=== PATIENT | female | born 1970 | race Caucasian/White ===

== ENCOUNTER → 2023-03-08 | Outpatient (CLI) | payer OTHER, SELFPAY ==
[2023-03-08 10:17] LABS: Hematocrit 41.1 % (37-47); Hemoglobin 12.4 g/dL (12.0-15.0); Mean Corp Hgb Conc 30.2 g/dL (32-36); Mean Corpuscular Hgb 26.6 pg (27.0-32.0); Mean Corpuscular Volume 88.2 fL (81-99); Mean Platelet Vol. 11.7 fl (6.2-12.0); Platelet Count 286 K/mm3 (150-450); RBC Distribution Width CV 13.5 % (11.6-14.6); RBC Distribution Width SD 43.4 fl (35.1-43.9); Red Blood Count 4.66 M/mm3 (4.2-5.4); White Blood Count 6.8 K/mm3 (4.4-11.0)
[2023-03-08 11:13] LABS: ALB/GLOB Ratio 1.1 RATIO (0.9-2.4); AST(SGOT) 13 U/L (15-37); Alanine Aminotransfer ALT/SGPT 24 U/L (13-56); Albumin, Serum 3.6 g/dL (3.2-5.0); Alkaline Phosphatase 92 U/L (45-117); Anion Gap 5 (5-15); BUN 21 mg/dL (7-18); BUN/Creat Ratio 22.3 RATIO (10-20); Calcium,Total 8.7 mg/dL (8.5-10.1); Chloride 113 mmol/L (98-107); Cholesterol 172 mg/dL (200); Creatinine, Serum 0.94 mg/dL (0.55-1.02); EST Glomerular Filtration Rate 66 mL/min (>60); Est Glom Filt Rate - Afr Amer 80 mL/min (>60); Ferritin 5 ng/mL (8-252); Globulin 3.2 g/dL (2.2-4.2); Glucose 112 mg/dL (74-106); High Density Lipoprotein 57 mg/dL; Iron 39 ug/dL (50-170); Potassium 4.2 mmol/L (3.5-5.1); Protein, Total 6.8 g/dL (6.4-8.2); Sodium Level 141 mmol/L (136-145); Thyroid Stim Hormone (TSH) 1.07 uIU/mL (0.358-3.74); Triglycerides 91 mg/dL; Very Low Density Lipoprotein 18 mg/dL (5-40)
[2023-03-08 11:36] LABS: Vitamin B12 1258 pg/mL (211-911); Vitamin D,25 Hydroxy 46.2 ng/mL
== END | disposition home or self-care (01) ==
LOC: MTLAB 07:28
PROVIDERS: PCP Family Medicine; Referring Provider Family Medicine; Visit Provider Family Medicine
DX: E55.9 Vitamin D deficiency, unspecified (principal); Z90.410 Acquired total absence of pancreas; R53.83 Other fatigue; Z13.220 Encounter for screening for lipoid disorders
CPT/HCPCS: 36415; 80053; 80061; 82306; 82607; 82728; 83540; 84443; 85027

== ENCOUNTER → 2023-05-10 | Outpatient (CLI) | payer OTHER, SELFPAY ==
--- NOTE | 2023-05-10 15:21 | BI_ITS ---
MAMMOGRAPHY - BILATERAL SCREENING REASON FOR EXAM: Female, 52 years old. Routine annual screening examination. PERTINENT HISTORY: Non-contributory. TECHNIQUE: Digital bilateral breast maurice (3D mammographic acquisition) in the CC and MLO projections. 2-D mediolateral oblique (MLO) and craniocaudad (CC) views of both breasts were obtained. CAD: Full Field Digital Mammography with Computer Added Detection was performed. COMPARISON: No comparison mammograms available at this time. If any prior films become available, an addendum to this report can be generated. FINDINGS: Breast Composition: There are scattered areas of fibroglandular density. There are no dominant masses or suspicious calcifications. Small benign-appearing bilateral axillary lymph nodes. No other significant abnormalities are identified. BI/SCRN MAMM (CAD)W/MAURICE BILAT IMPRESSION: Negative screening mammogram. Yearly followup mammogram recommended. (A) ASSESSMENT CATEGORY: BIRADS Category 2: Benign. A letter regarding these results will be sent to the patient by the facility within 30 days. Approximately 10% of breast cancers are not detected by mammography. A normal mammogram should not delay biopsy of a clinically suspicious abnormality. [id number] Electronically Signed: William Bonilla MD at 10:17 EDT ,
--- NOTE | 2023-05-10 15:53 | CT_ITS ---
STUDY: CT ABDOMEN AND PELVIS WITH CONTRAST REASON FOR EXAM: Female, 52 years old. tumor RADIATION DOSAGE (If Supplied By Facility): CTDIvol = ( 15.38 ) mGy, DLP = ( 1193.5 ) mGycm TECHNIQUE: Transaxial images were obtained from the dome of the diaphragm to the symphysis pubis without oral contrast. Oral and amp; IV Readi-CAT and amp; 100mL Isovue-300 was administered. Sagittal and coronal images were reconstructed. Individualized dose optimization techniques were used for this CT. COMPARISON: None. FINDINGS: Minor atelectasis within the dependent portion of the lower lobes. The visualized portions of the heart are within normal limits. Moderate-sized hiatal hernia is noted Normal liver. Postsurgical changes status post cholecystectomy and Whipple''s procedure. Normal spleen. Normal pancreas. Normal bilateral adrenal glands. Normal right kidney. Normal left kidney. Normal visualized stomach. Normal small intestine. Normal colon. The appendix is visualized and appears normal. Normal abdominal aorta. Normal inferior vena cava. Normal retroperitoneum. Poorly distended thick walled prolapsed bladder.. Uterus not visualized status post hysterectomy Normal abdominal wall. Lumbar spine demonstrates mild spondylosis. CT/Abdomen/Pelvis WITH Contrast IMPRESSION: Postsurgical changes status post cholecystectomy and Whipple''s procedure. Status post cholecystectomy No evidence for small bowel obstruction. No evidence for pelvic metastasis or lymphadenopathy. Electronically Signed: Pietro Zuñiga MD at 20:12 EDT ,
== END | disposition home or self-care (01) ==
LOC: CT 15:19
PROVIDERS: PCP Family Medicine; Referring Provider Family Medicine; Visit Provider Family Medicine
DX: Z12.31 Encounter for screening mammogram for malignant neoplasm of breast (principal); C49.A0 Gastrointestinal stromal tumor, unspecified site
CPT/HCPCS: 74177; 77063; 77067; Q9967

== ENCOUNTER → 2023-08-28 | Outpatient (CLI) | payer OTHER, SELFPAY ==
[2023-08-28 12:11] LABS: Mucous, Urine 0 SEEN /hpf (<or=2+)
[2023-08-28 12:28] LABS: Color, Urine Yellow (Yellow); Glucose, Dipstick Normal (Normal); Ketone-Dipstick Negative (Negative); Leukocyte Esterase-Dipstick 500 /ul (Negative); Nitrite-Dipstick Negative (Negative); Occult Blood-Urine 25 /ul (Negative); Protein-Dipstick 15 mg/dl (Negative); Specific Gravity, Urine 1.025 (1.002-1.030); Urine Bilirubin Dipstick Negative (Negative); Urine Clarity Sl. Cloudy (Clear); Urine Urobilinogen Normal (Normal)
[2023-08-28 12:42] LABS: Bacteria 1+ /hpf (None Seen); Red Blood Cells-Urine 0-5 SEEN /hpf (0-5); Squamous Epithelial Cells - UA 0-5 SEEN /hpf (5-10); White Blood Cells 25-50 SEEN /hpf (0-5)
== END | disposition home or self-care (01) ==
LOC: LABSPEC 10:09
PROVIDERS: PCP Family Medicine; Referring Provider Family Medicine; Visit Provider Family Medicine
DX: R31.29 Other microscopic hematuria (principal)
CPT/HCPCS: 81001

== ENCOUNTER 2025-04-07 07:29 | Day surgery (SDC) | payer OTHER, SELFPAY ==
[2025-04-07] VITALS (20 sets, daily range): BP systolic 94–150; BP diastolic 62–89; PULSE 74–95; RESP 14–18; TEMP 36–37.1; O2SAT 92–98; BMI 32.5
--- NOTE | 2025-04-07 07:48 | EKG12_ITS ---
Test Reason : PREOP Blood Pressure : */* mmHG Vent. Rate : 83 BPM Atrial Rate : 83 BPM P-R Int : 176 ms QRS Dur : 80 ms QT Int : 354 ms P-R-T Axes : 51 -26 82 degrees QTcB Int : 415 ms Normal sinus rhythm Inferior infarct , age undetermined Abnormal ECG No previous ECGs available Confirmed by GLORIA GUERRERO, BENJI ([id number]), content editor DANNA DEL ROSARIO ([id number]) on 04/08/2025 7:13:34 AM Referred By: Gustavo Bertrand Confirmed By: BENJI CASTRO MD
--- NOTE | 2025-04-07 07:48 | EKG12_ITS ---
Test Reason : PREOP Blood Pressure : */* mmHG Vent. Rate : 83 BPM Atrial Rate : 83 BPM P-R Int : 176 ms QRS Dur : 80 ms QT Int : 354 ms P-R-T Axes : 51 -26 82 degrees QTcB Int : 415 ms Normal sinus rhythm Inferior infarct , age undetermined Abnormal ECG No previous ECGs available Confirmed by GLORIA GUERRERO, BENJI ([id number]), editor in chief DANNA DEL ROSARIO ([id number]) on 04/08/2025 7:13:34 AM Referred By: Gustavo Bertrand Confirmed By: BENJI CASTRO MD
[2025-04-07] MEDS: Lactated Ringers 1,000 ML 15 ML IV (08:26)
--- NOTE | 2025-04-07 08:29 | PCM.HP.BLA ---
History and Physical Date of Admission: 04/07/25 [facility] [address] [place] [address] OFFICE VISIT Date of Service: 04/01/25 MR#: [id number] Acct: [id number] Name: HOSSEIN SCHULER Rep #: [id number] : 1970 Provider: Dr. Gustavo Bertrand DO Age/Sex: 54/F Location: [facility] [place] Status: Signed Intake Vital Signs 02/13/2408:57 03/30/2509:08 04/01/2513:49 Height 5 ft 7 in 5 ft 7 in 5 ft 7 in Intake Visit Reasons: RIGHT ARM Chief Complaint: Right arm pain Accompanied by: Friend Is patient in pain?: Yes Pain scale (1-10): 3 Allergies codeine Allergy (Intermediate, Verified 04/01/25 13:51) Chest tightness Medications ?Medication ?Instructions ?Recorded ?Confirmed ?Type ascorbic acid (vitamin C) 1,000 mg 1 g PO Q6H 02/13/24 04/01/25 History capsule ferrous gluconate 240 mg (27 mg 240 mg PO DAILY 02/13/24 04/01/25 History iron) tablet (Ferate) ibuprofen 200 mg capsule 200 mg PO Q6H PRN 02/13/24 04/01/25 History hydrocodone-acetaminophen 5-325mg 1 tab PO BID PRN 04/01/25 04/01/25 History 5mg-325mg omeprazole magnesium 20 mg 20 mg PO QDAY 04/01/25 04/01/25 History capsule,delayed release (Acid Mission Assessment Specialist (omeprazole)) Have you fallen in the past year?: No PFSH Medical History Acute pharyngitis, unspecified Surgical History H/O: hysterectomy Social History (Updated 04/01/25 @ 13:54 by Yamila Rodriguez MA) Smoking Status: Never smoker alcohol intake: current alcohol intake frequency: holidays/special occasions only HPI RIGHT ARM Details: This documentation accurately reflects the service provided and the decisions made by me, Dr. Gustavo Bertrand, DO 04/01/25 1349. Part of today?s visit was documented by Yamila Fowler MA, acting as scribe. HOSSEIN SCHULER is a 54 year old F here today for right arm. Patient is having pain in the right arm. The pain is mainly in the wrist. She denies any shoulder or elbow pain.denies numbness or tingling. This happened Sunday03/28/2025. Patient tripped at work and she tried to catch her self and landed on her right arm. She did not trip or slip on anything. She went straight to [facility] and they did Xrays. The distal radius and ulna were fractured. They did perform a closed reduction and splinting patient hasn't had prior surgery or injury on her arm. The Tylenol has been helping with the pain.Patient denies any diabetes, or blood thinners. Patient denies any smoking or drug use. She is RHD. Ortho Exam General General: Yes no acute distress and Yes well groomed Neurologic: Yes alert and Yes oriented x3 Psychologic: Yes reasonable and appropriate Right Wrist/Hand Date of injury: 03/28/25 WRIST: She is able to flex and extend her digits abduct her digits intact sensation light touch brisk capillary refill her compartments are soft and her arm. Head: Normocephalic Atraumatic Chest: symmetrical rise, non-labored breathing, no audible wheeze Abdomen: no guarding, non-rigid Supplemental Info 03/28/2025 x-ray right wrist pre and postreduction x-rays of a comminuted displaced distal radius fracture there is a nondisplaced ulnar styloid fracture Coding Level of Care Code Off vis,new,level 3 Diagnoses Other closed extra-articular fracture of distal end of right radius, initial encounter S52.551A Encounter type: initial encounter Fracture type: closed Fracture morphology: other extra-articular Other closed fracture of distal end of right ulna, initial encounter S52.691A Encounter type: initial encounter Fracture type: closed Fracture morphology: other fracture Assessment and Plan Assessment and Plan (1) Distal radius fracture, right: Status: Acute Qualifiers: Encounter type: initial encounter Fracture type: closed Fracture morphology: other extra-articular Qualified Code(s): S52.551A - Other extraarticular fracture of lower end of right radius, initial encounter for closed fracture (2) Right distal ulnar fracture: Status: Acute Qualifiers: Encounter type: initial encounter Fracture type: closed Fracture morphology: other fracture Qualified Code(s): S52.691A - Other fracture of lower end of right ulna, initial encounter for closed fracture Plan Reviewed x-rays that were taken on 03/28/2025 at [facility] and explained she did break both wrist bones the radius and ulna. Surgical nonsurgical options were reviewed and due to the fact of the comminution and displacement and angulation I would recommend surgical intervention. Risks benefits alternatives were reviewed including risk of bleeding infection nerve artery tissue damage need for further surgery continued pain hardware failure or irritation and expected postoperative restrictions and recovery. Postoperative weightbearing restrictions expected for up to 8 weeks Explained we need to wait about a week to let the swelling decrease as much as possible. She should really try to keep the hand and arm elevated and keep her fingers moving as much as possible. Recommended she take at least 6 weeks off of work unless they are able to allow her to do light duty. She should not take any Ibuprofen/Aleve prior to surgery but she can take Tylenol. Patient would like to proceed with surgery for next Sunday04/07/2025. Follow up after surgery for post-op appointment or sooner if pain, swelling, numbness or associated symptoms, or concerns develop. All questions answered. Patient in agreement of plan. Clinical Quality Measures Falls Risk Screening/Assistive Devices Have you fallen in the past year?: No 04/01/25 1548 <Electronically signed by Gustavo Bertrand DO> Date Gustavo Bertrand DO I have examined the patient and the H&P has been reviewed. There are no clinical changes since date of exam.
--- NOTE | 2025-04-07 08:29 | PCM.HP.BLA ---
History and Physical Date of Admission: 04/07/25 [facility] [address] [place] [address] OFFICE VISIT Date of Service: 04/01/25 MR#: [id number] Acct: [id number] Name: HOSSEIN SCHULER Rep #: [id number] : 1970 Provider: Dr. Gustavo Bertrand DO Age/Sex: 54/F Location: [facility] [place] Status: Signed Intake Vital Signs 02/13/2408:57 03/30/2509:08 04/01/2513:49 Height 5 ft 7 in 5 ft 7 in 5 ft 7 in Intake Visit Reasons: RIGHT ARM Chief Complaint: Right arm pain Accompanied by: Friend Is patient in pain?: Yes Pain scale (1-10): 3 Allergies codeine Allergy (Intermediate, Verified 04/01/25 13:51) Chest tightness Medications ?Medication ?Instructions ?Recorded ?Confirmed ?Type ascorbic acid (vitamin C) 1,000 mg 1 g PO Q6H 02/13/24 04/01/25 History capsule ferrous gluconate 240 mg (27 mg 240 mg PO DAILY 02/13/24 04/01/25 History iron) tablet (Ferate) ibuprofen 200 mg capsule 200 mg PO Q6H PRN 02/13/24 04/01/25 History hydrocodone-acetaminophen 5-325mg 1 tab PO BID PRN 04/01/25 04/01/25 History 5mg-325mg omeprazole magnesium 20 mg 20 mg PO QDAY 04/01/25 04/01/25 History capsule,delayed release (Acid Full Stack Net Developer (omeprazole)) Have you fallen in the past year?: No PFSH Medical History Acute pharyngitis, unspecified Surgical History H/O: hysterectomy Social History (Updated 04/01/25 @ 13:54 by Yamila Rodriguez MA) Smoking Status: Never smoker alcohol intake: current alcohol intake frequency: holidays/special occasions only HPI RIGHT ARM Details: This documentation accurately reflects the service provided and the decisions made by me, Dr. Gustavo Bertrand, DO 04/01/25 1349. Part of today?s visit was documented by Yamila Fowler MA, acting as scribe. HOSSEIN SCHULER is a 54 year old F here today for right arm. Patient is having pain in the right arm. The pain is mainly in the wrist. She denies any shoulder or elbow pain.denies numbness or tingling. This happened Sunday03/28/2025. Patient tripped at work and she tried to catch her self and landed on her right arm. She did not trip or slip on anything. She went straight to [facility] and they did Xrays. The distal radius and ulna were fractured. They did perform a closed reduction and splinting patient hasn't had prior surgery or injury on her arm. The Tylenol has been helping with the pain.Patient denies any diabetes, or blood thinners. Patient denies any smoking or drug use. She is RHD. Ortho Exam General General: Yes no acute distress and Yes well groomed Neurologic: Yes alert and Yes oriented x3 Psychologic: Yes reasonable and appropriate Right Wrist/Hand Date of injury: 03/28/25 WRIST: She is able to flex and extend her digits abduct her digits intact sensation light touch brisk capillary refill her compartments are soft and her arm. Head: Normocephalic Atraumatic Chest: symmetrical rise, non-labored breathing, no audible wheeze Abdomen: no guarding, non-rigid Supplemental Info 03/28/2025 x-ray right wrist pre and postreduction x-rays of a comminuted displaced distal radius fracture there is a nondisplaced ulnar styloid fracture Coding Level of Care Code Off vis,new,level 3 Diagnoses Other closed extra-articular fracture of distal end of right radius, initial encounter S52.551A Encounter type: initial encounter Fracture type: closed Fracture morphology: other extra-articular Other closed fracture of distal end of right ulna, initial encounter S52.691A Encounter type: initial encounter Fracture type: closed Fracture morphology: other fracture Assessment and Plan Assessment and Plan (1) Distal radius fracture, right: Status: Acute Qualifiers: Encounter type: initial encounter Fracture type: closed Fracture morphology: other extra-articular Qualified Code(s): S52.551A - Other extraarticular fracture of lower end of right radius, initial encounter for closed fracture (2) Right distal ulnar fracture: Status: Acute Qualifiers: Encounter type: initial encounter Fracture type: closed Fracture morphology: other fracture Qualified Code(s): S52.691A - Other fracture of lower end of right ulna, initial encounter for closed fracture Plan Reviewed x-rays that were taken on 03/28/2025 at [facility] and explained she did break both wrist bones the radius and ulna. Surgical nonsurgical options were reviewed and due to the fact of the comminution and displacement and angulation I would recommend surgical intervention. Risks benefits alternatives were reviewed including risk of bleeding infection nerve artery tissue damage need for further surgery continued pain hardware failure or irritation and expected postoperative restrictions and recovery. Postoperative weightbearing restrictions expected for up to 8 weeks Explained we need to wait about a week to let the swelling decrease as much as possible. She should really try to keep the hand and arm elevated and keep her fingers moving as much as possible. Recommended she take at least 6 weeks off of work unless they are able to allow her to do light duty. She should not take any Ibuprofen/Aleve prior to surgery but she can take Tylenol. Patient would like to proceed with surgery for next Sunday04/07/2025. Follow up after surgery for post-op appointment or sooner if pain, swelling, numbness or associated symptoms, or concerns develop. All questions answered. Patient in agreement of plan. Clinical Quality Measures Falls Risk Screening/Assistive Devices Have you fallen in the past year?: No 04/01/25 1548 <Electronically signed by Gustavo Bertrand DO> Date Gustavo Bertrand DO I have examined the patient and the H&P has been reviewed. There are no clinical changes since date of exam.
--- NOTE | 2025-04-07 08:33 | PRE.ANES_ITS ---
ASA Classification* ASA Classification ASA Classification: 2 Assessment & Plan Anesthesia* Anesthesia Assessment Anesthesia Assessment: Discussed sedation and/or anesthesia options, risks, benefits, and alternatives with patient/parents/legal guardian/POA. Questions invited. The patient/parents/legal guardian/POA seems to understand and agrees to proceed with anesthesia plan. Reviewed the physical assessment, medical history, allergy history and patient home medications list prior to surgery/procedure/anesthetic and documented any changes. Performed airway and anesthesia risk assessments. Anesthesia Type Anesthesia Type: General and Block (Axillary block is discussed with the patient. She would like to decide after the procedure.) History Source History Obtained from:: Patient and Chart Anesthesia Focused Assessment* Temperature: 98.7 F Pulse Rate: 83 Blood Pressure: 117/83 Respiratory Rate: 18 Pulse Ox: 95 Oxygen Delivery Method: Room Air Airway Assessment Mouth opens: >3 cm Mallampati Score: IV Teeth Condition: Missing (Patient has a missing left upper molar. Rest are tight.) Neck Range of motion (ROM): Limited ROM (Slight Decrease) Labs Anesthesia Preop lab: CBC WBC 6.8 K/mm3 (4.4-11.0) 03/08/23 07:03/08/23 RBC 4.66 M/mm3 (4.2-5.4) 03/08/23 07:03/08/23 Hgb 12.4 g/dL (12.0-15.0) 03/08/23 07:03/08/23 Hct 41.1 % (37-47) 03/08/23 07:03/08/23 Plt Count 286 K/mm3 (150-450) 03/08/23 07:03/08/23 CHEMISTRY Potassium 4.2 mmol/L (3.5-5.1) 03/08/23 07:03/08/23 Sodium 141 mmol/L (136-145) 03/08/23 07:03/08/23 BUN 21 mg/dL (7-18) H 03/08/23 07:31 03/08/23 Creatinine 0.94 mg/dL (0.55-1.02) 03/08/23 07:03/08/23 Glucose 112 mg/dL (74-106) H 03/08/23 07:03/08/23 TSH 1.07 uIU/mL (0.358-3.74) 03/08/23 07:31 COAG PT Pending 04/07/25 08:20 04/07/25 Pre-Assessment Diagnosis/Proposed Procedure Planned Operative Procedure(s): (R) Right distal radius open reduction internal fixation possible percutaneous pinning of ulna Anesthesia History Anesthesia History - gizzard puller: Anesthesia History - gizzard puller Hx Hospitalization No 04/06/25 15:01 Any Problems With Anesthesia Yes: PONV 04/06/25 15:01 Cholinesterase deficiency No 04/06/25 15:01 You/Your Family Experience No 04/06/25 15:01 fever (hyperthermia) with Relationship Recent Exposure to Contagious No 04/07/25 07:58 Disease Does patient have nerve No 04/06/25 15:01 stimulator Patient instructed to have device shut off --Does patient have Pacemaker No 04/07/25 07:58 or ICD? When Was Last Pacemaker Check QUESTION #4 FULL TEXT: You/Your Family Experience fever (hyperthermia) with Anesthesia Last Oral Intake Last Oral intake: Last Oral Intake NPO since 22:30 04/07/25 07:58 Meds taken in AM with sips of No 04/07/25 07:58 water? Meds patient instructed to take am of surgery PONV PONV - gizzard puller: PONV - gizzard puller Female Yes 04/06/25 15:01 HX of Motion Sickness No 04/06/25 15:01 HX of N/V After Surgery Yes 04/06/25 15:01 Non-Smoker Yes 04/06/25 15:01 Duration of Surgery greater Yes 04/06/25 15:01 than 60 minutes Number of Risk Factors 4 04/06/25 15:01 PONV Score Severe Risk 04/06/25 15:01 Height & Weight Height & Weight: Anesthesia: Height & Weight Height 5 ft 7 in 04/07/25 07:58 Weight: 94.1 kg 04/07/25 07:58 Body Mass Index (BMI) 32.5 04/07/25 07:58 Respiratory Assessment Respiratory Assessment - gizzard puller: Respiratory Tract Infection Hx - gizzard puller Hx Respiratory Tract Infection No 04/06/25 15:01 STOP Sleep Apnea STOP Sleep Apnea - gizzard puller: STOP Sleep Apnea - gizzard puller Hx Hypertension No 04/06/25 15:01 Hx Sleep Apnea No 04/06/25 15:01 CPAP BIPAP Do you snore loudly (louder Yes 04/06/25 15:01 than talking or can be heard Do you often feel tired/ No 04/06/25 15:01 fatigued/ sleepy during daytime? Has anyone observed you stop No 04/06/25 15:01 breathing during sleep? STOP Results Negative 04/06/25 15:01 QUESTION #5 FULL TEXT : Do you snore loudly (louder than talking or can be heard through closed doors)? 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 Specify any problems Hx of Preganancy in last 3 No 04/06/25 15:01 Months Nurse Filling Out Transfusion MGRIFLACA 04/06/25 15:01 & Questions: Date: 04/06/25 04/06/25 15:01 Time: 15:03 04/06/25 15:01 Patient unable to answer at this time (ie. confused, unrespo /Reproduction History /Reproductive History - gizzard puller: /Reproductive Hx- gizzard puller Hx Now No 04/06/25 15:01 Gestational Age (in weeks): EDC: Hx Hx Para Hx Section SAB No 04/06/25 15:01 Active Medications Active Medications: Current Medications Generic Name Dose Route Start Last Admin Trade Name Freq PRN Reason Stop Dose Admin Cefazolin Sodium 2 gm/ Sodium 110 mls @ 200 mls/hr 04/07/25 10:00 Chloride IV 04/07/25 10:32 INTRAOP ONE Lactated Ringer's 1,000 mls @ 15 mls/hr 04/07/25 08:30 04/07/25 08:26 IV 15 mls/hr .Q48H JAMES Administration PFSH Medical History Wears glasses Cancer Alcohol use Anemia Migraine headache Restless legs PONV (postoperative nausea and vomiting) Gastric reflux Shortness of breath on exertion Non-smoker Acute pharyngitis, unspecified Home Medications ?Medication ?Instructions ?Recorded ?Last Taken ?Type ascorbic acid (vitamin C) 1,000 mg 1 g PO DAILY Unknown History capsule ferrous gluconate 240 mg (27 mg 240 mg PO DAILY Unknown History iron) tablet (Ferate) ibuprofen 200 mg capsule 200 mg PO Q6H PRN pain 02/1204/01/25 History hydrocodone-acetaminophen 5-325mg 1 tab PO BID PRN katharina n 04/01/25 Unknown History 5mg-325mg omeprazole magnesium 20 mg 20 mg PO QHS 04/01/25 Unkno wn History capsule,delayed release (Acid Agricultural Chemicals Inspector (omeprazole)) TURMERIC CURCUMIN 500 mg PO DAILY 04/06/25 Unk nown History Allergy/AdvReac Type Severity Reaction Status Date / Time codeine Allergy Intermediate Chest Verified 04/07/25 07:56 tightness Surgical History History of cholecystectomy History of surgical removal of pilonidal cyst History of surgery History of Whipple procedure History of H/O: hysterectomy Social History Smoking Status: Never smoker alcohol intake: current alcohol intake frequency: holidays/special occasions only Review of Systems (Anesthesia) ROS Narrative System reviewed and no additional complaints, except as documented.
--- NOTE | 2025-04-07 08:33 | PRE.ANES_ITS ---
ASA Classification* ASA Classification ASA Classification: 2 Assessment & Plan Anesthesia* Anesthesia Assessment Anesthesia Assessment: Discussed sedation and/or anesthesia options, risks, benefits, and alternatives with patient/parents/legal guardian/POA. Questions invited. The patient/parents/legal guardian/POA seems to understand and agrees to proceed with anesthesia plan. Reviewed the physical assessment, medical history, allergy history and patient home medications list prior to surgery/procedure/anesthetic and documented any changes. Performed airway and anesthesia risk assessments. Anesthesia Type Anesthesia Type: General and Block (Axillary block is discussed with the patient. She would like to decide after the procedure.) History Source History Obtained from:: Patient and Chart Anesthesia Focused Assessment* Temperature: 98.7 F Pulse Rate: 83 Blood Pressure: 117/83 Respiratory Rate: 18 Pulse Ox: 95 Oxygen Delivery Method: Room Air Airway Assessment Mouth opens: >3 cm Mallampati Score: IV Teeth Condition: Missing (Patient has a missing left upper molar. Rest are tight.) Neck Range of motion (ROM): Limited ROM (Slight Decrease) Labs Anesthesia Preop lab: CBC WBC 6.8 K/mm3 (4.4-11.0) 03/08/23 07:03/08/23 RBC 4.66 M/mm3 (4.2-5.4) 03/08/23 07:03/08/23 Hgb 12.4 g/dL (12.0-15.0) 03/08/23 07:03/08/23 Hct 41.1 % (37-47) 03/08/23 07:03/08/23 Plt Count 286 K/mm3 (150-450) 03/08/23 07:03/08/23 CHEMISTRY Potassium 4.2 mmol/L (3.5-5.1) 03/08/23 07:03/08/23 Sodium 141 mmol/L (136-145) 03/08/23 07:03/08/23 BUN 21 mg/dL (7-18) H 03/08/23 07:31 03/08/23 Creatinine 0.94 mg/dL (0.55-1.02) 03/08/23 07:03/08/23 Glucose 112 mg/dL (74-106) H 03/08/23 07:03/08/23 TSH 1.07 uIU/mL (0.358-3.74) 03/08/23 07:31 COAG PT Pending 04/07/25 08:20 04/07/25 Pre-Assessment Diagnosis/Proposed Procedure Planned Operative Procedure(s): (R) Right distal radius open reduction internal fixation possible percutaneous pinning of ulna Anesthesia History Anesthesia History - 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 When Was Last Pacemaker Check QUESTION #4 FULL TEXT: You/Your Family Experience fever (hyperthermia) with Anesthesia Last Oral Intake Last Oral intake: Last Oral Intake NPO since 22:30 04/07/25 07:58 Meds taken in AM with sips of No 04/07/25 07:58 water? Meds patient instructed to take am of surgery PONV PONV - electronic imaging system operator: PONV - electronic imaging system operator Female Yes 04/06/25 15:01 HX of Motion Sickness No 04/06/25 15:01 HX of N/V After Surgery Yes 04/06/25 15:01 Non-Smoker Yes 04/06/25 15:01 Duration of Surgery greater Yes 04/06/25 15:01 than 60 minutes Number of Risk Factors 4 04/06/25 15:01 PONV Score Severe Risk 04/06/25 15:01 Height & Weight Height & Weight: Anesthesia: Height & Weight Height 5 ft 7 in 04/07/25 07:58 Weight: 94.1 kg 04/07/25 07:58 Body Mass Index (BMI) 32.5 04/07/25 07:58 Respiratory Assessment Respiratory Assessment - electronic imaging system operator: Respiratory Tract Infection Hx - electronic imaging system operator Hx Respiratory Tract Infection No 04/06/25 15:01 STOP Sleep Apnea STOP Sleep Apnea - electronic imaging system operator: STOP Sleep Apnea - electronic imaging system operator Hx Hypertension No 04/06/25 15:01 Hx Sleep Apnea No 04/06/25 15:01 CPAP BIPAP Do you snore loudly (louder Yes 04/06/25 15:01 than talking or can be heard Do you often feel tired/ No 04/06/25 15:01 fatigued/ sleepy during daytime? Has anyone observed you stop No 04/06/25 15:01 breathing during sleep? STOP Results Negative 04/06/25 15:01 QUESTION #5 FULL TEXT : Do you snore loudly (louder than talking or can be heard through closed doors)? Tobacco Use History Tobacco Use History - electronic imaging system operator: Tobacco Use History - electronic imaging system operator Tobacco Use Smoking Status Never smoker 04/06/25 15:01 Hx Tobacco Use No 04/06/25 15:01 Years Smoking Packs Smoked per Day Smoking Cessation Date was within the last 15 years Hx Smoking Cessation Date Hx Smoking Cessation Counseling Hematologic Medial History Hematologic Hx - electronic imaging system operator: Hematologic Medical Hx - a/c technician Hx of Blood Transfusion No 04/06/25 15:01 Hx of Transfusion in last 3 No 04/06/25 15:01 Months Date of Last Transfusion (if within last 3 months) Ever experience any problems No 04/06/25 15:01 with transfusion(s)? Specify any problems Hx of Preganancy in last 3 No 04/06/25 15:01 Months Nurse Filling Out Transfusion [email or web address] 04/06/25 15:01 & Questions: Date: 04/06/25 04/06/25 15:01 Time: 15:03 04/06/25 15:01 Patient unable to answer at this time (ie. confused, unrespo /Reproduction History /Reproductive History - electronic imaging system operator: /Reproductive Hx- electronic imaging system operator Hx Now No 04/06/25 15:01 Gestational Age (in weeks): EDC: Hx Hx Para Hx Section SAB No 04/06/25 15:01 Active Medications Active Medications: Current Medications Generic Name Dose Route Start Last Admin Trade Name Freq PRN Reason Stop Dose Admin Cefazolin Sodium 2 gm/ Sodium 110 mls @ 200 mls/hr 04/07/25 10:00 Chloride IV 04/07/25 10:32 INTRAOP ONE Lactated Ringer's 1,000 mls @ 15 mls/hr 04/07/25 08:30 04/07/25 08:26 IV 15 mls/hr .Q48H JAMES Administration PFSH Medical History Wears glasses Cancer Alcohol use Anemia Migraine headache Restless legs PONV (postoperative nausea and vomiting) Gastric reflux Shortness of breath on exertion Non-smoker Acute pharyngitis, unspecified Home Medications ?Medication ?Instructions ?Recorded ?Last Taken ?Type ascorbic acid (vitamin C) 1,000 mg 1 g PO DAILY Unknown History capsule ferrous gluconate 240 mg (27 mg 240 mg PO DAILY Unknown History iron) tablet (Ferate) ibuprofen 200 mg capsule 200 mg PO Q6H PRN pain 02/1204/01/25 History hydrocodone-acetaminophen 5-325mg 1 tab PO BID PRN katharina n 04/01/25 Unknown History 5mg-325mg omeprazole magnesium 20 mg 20 mg PO QHS 04/01/25 Unkno wn History capsule,delayed release (Acid Delineator (omeprazole)) TURMERIC CURCUMIN 500 mg PO DAILY 04/06/25 Unk nown History Allergy/AdvReac Type Severity Reaction Status Date / Time codeine Allergy Intermediate Chest Verified 04/07/25 07:56 tightness Surgical History History of cholecystectomy History of surgical removal of pilonidal cyst History of surgery History of Whipple procedure History of H/O: hysterectomy Social History Smoking Status: Never smoker alcohol intake: current alcohol intake frequency: holidays/special occasions only Review of Systems (Anesthesia) ROS Narrative System reviewed and no additional complaints, except as documented.
[2025-04-07 08:42] LABS: Hematocrit 40.1 % (37-47); Hemoglobin 13.3 g/dL (12.0-15.0); Mean Corp Hgb Conc 33.2 g/dL (32-36); Mean Corpuscular Volume 89.1 fL (81-99); Mean Platelet Vol. 11.1 fl (6.2-12.0); Platelet Count 302 K/mm3 (150-450); RBC Distribution Width CV 12.5 % (11.6-14.6); RBC Distribution Width SD 40.1 fl (35.1-43.9); Red Blood Count 4.50 M/mm3 (4.2-5.4); White Blood Count 7.3 K/mm3 (4.4-11.0)
[2025-04-07 08:44] LABS: Partial Thromboplast Time 27.3 Seconds (24.1-36.2)
[2025-04-07 08:49] LABS: Prothrombin Time (Protime)PT. 13.4 SECONDS (11.7-14.9)
--- NOTE | 2025-04-07 10:20 | RAD_ITS ---
EXAM: XR Right Wrist, 2 Views CLINICAL INDICATION: ORIF RT DISTAL RADIUS TECHNIQUE: Frontal and lateral views of the right wrist. COMPARISON: No relevant prior studies available. FINDINGS: BONES/JOINTS: Unremarkable. No acute fracture. No dislocation. SOFT TISSUES: Unremarkable. No radiopaque foreign body. OTHER FINDINGS: Total of 18 spot images were obtained. Total fluoroscopy time 54.5 seconds. Total radiation dose 0.96 mGy. RAD/Wrist 2 Views IMPRESSION: Fluoroscopic guidance was used intraoperatively. Please refer to the operative note for further details. Reading Location: [facility]
--- NOTE | 2025-04-07 10:20 | RAD_ITS ---
EXAM: XR Right Wrist, 2 Views CLINICAL INDICATION: ORIF RT DISTAL RADIUS TECHNIQUE: Frontal and lateral views of the right wrist. COMPARISON: No relevant prior studies available. FINDINGS: BONES/JOINTS: Unremarkable. No acute fracture. No dislocation. SOFT TISSUES: Unremarkable. No radiopaque foreign body. OTHER FINDINGS: Total of 18 spot images were obtained. Total fluoroscopy time 54.5 seconds. Total radiation dose 0.96 mGy. RAD/Wrist 2 Views IMPRESSION: Fluoroscopic guidance was used intraoperatively. Please refer to the operative note for further details. Reading Location: [facility]
[2025-04-07] MEDS: Bupiv/Epi 0.25% 30 ML Vial (10:32)
--- NOTE | 2025-04-07 10:43 | PCM.OPRPT ---
Operative Report (Standard) Operative Information Date of Procedure: 04/07/25 Pre-Operative Diagnosis: Comminuted displaced distal radius fracture Post-Operative Diagnosis: Same Surgery/Procedure Performed: Open reduction internal fixation right distal radius locomotive mechanic apprentice: Yes Water Quality Analyst: Eleazar Chacko Tasks completed by bankruptcy legal assistant: Opening & closing and Implanting device Type of Anesthesia: General RN Documented Start/Stop Times: Operation Date: 04/07/25 09:00 Case Time Into Pre-Op 04/07/25 07:57 Into Room 04/07/25 08:56 Anesthesia Start 04/07/25 09:18 Procedure Start 04/07/25 09:18 Procedure End 04/07/25 10:36 Procedure Start Time: 09:18 Procedure Stop Time: 10:36 Select all DRAINS/GRAFTS/IMPLANTS that apply: Prosthetic device Prosthetic device details: Synthes distal radius variable angle locking plate Estimated Blood Loss: 10 Specimen collected: No Description of surgery: Preoperative diagnosis: Comminuted displaced intra-articular into the DRUJ and angulated distal radius and ulnar fracture Postoperative diagnosis: Same Anesthesia: General Procedure: ORIF of the distal radius Implants: Synthes distal radius variable angle locking plate Tourniquet time: 43 minutes Complications: None Indication for procedure: 54-year-old female 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 Including the risk of bleeding infection nerve artery tissue damage need for further surgery continued pain postoperative stiffness need for postoperative physical therapy and the expected postoperative course. Procedure: The patient was met in the preoperative holding area the operative extremity was identified by both patient and physician and marked. Patient was met by anesthesia she was brought back to the operating room on a wheeled cart and transferred to the operating table in the supine position anesthesia was started. A well-padded tourniquet was placed on the upper arm of the operative extremity. She was prepped and draped in the usual sterile fashion. A Time out was called to ensure the proper patient procedure and extremity were being contemplated. A 15 blade scalpel was used to make a linear incision over the FCR tendon this was carried down through the skin and subcutaneous tissue. Electrocautery was used to maintain hemostasis. Jose Armando retractors were used. The FCR tendon sheath was incised and the FCR tendon was mobilized radially. A deep blade scalpel was used to perforate the fascia of the deep FCR tendon sheath and Littler scissors were used to dissect proximally and distally. Blunt dissection was performed a dio was placed on the radial and ulnar side of the radius. The pronator quadratus was partially torn from the injury and was released off the radial border of the radius with electrocautery and was elevated with a aguilera elevator. The Hohmann retractors were then placed deep to this muscle. The fracture site was visualized and was freed of hematoma and clot debris with the use of small rongeur and [place]. The fracture was then reduced with the use of a [place] and ulnar deviation and wrist flexion and traction. This was checked under fluoroscopy to ensure that an adequate reduction could be performed. A plate was then positioned over the fracture site and temporarily fixed to the bone with K wires. A cortical screw was then placed in the shaft and uses a reduction aid a cortical compression screw was then placed distally followed by sequential locking screws were placed distally, the initial reduction cortical screw distally was removed and replaced with a locking screw this was checked on both AP and lateral projections to ensure screw placement was not penetrating the joint and was in the proper location. Bone drill sleeve was used for the radial styloid screw and a variable angle fashion. The second cortical screw was placed in the shaft . In the initial cortical screw was replaced as it was long after it was used for reduction there was fracture comminution around the screw and therefore was determined that the construct would benefit from 1 locking screw in the proximal end of the plate . the fracture and hardware were visualized in both AP and lateral projections in good alignment and fracture positioning. The wound was thoroughly irrigated with sterile saline followed by Betadine rinse followed by more sterile saline. Pronator quadratus was not repairable. A subcutaneous stitch with 3-0 Vicryl was performed followed by 3-0 Monocryl running stitch subcu. Followed by Xeroform 4 x 4 ABD web roll stockinette more web roll volar paster splint and an Efra wrap. The tourniquet was let down. There was no complications intraoperatively and the patient was brought back to the PACU in stable condition . All counts were correct. Surgical Findings: Comminuted distal radius fracture Complications Complications: No
--- NOTE | 2025-04-07 10:48 | PCM.POST.ANE ---
Anesthesia: Postop Eval I Current Vital Signs Temperature: 96.8 F Pulse Rate: 80 Blood Pressure: 150/76 Respiratory Rate: 18 Pulse Ox: 94 Oxygen Delivery Method: Room Air Assessment Airway patent: Yes Spontaneous unlabored respirations: Yes Mental status: Awake nausea: No Vomiting: No Anesthesia Complication: No Fluid Hydration Crystalloid volume administer (ml): 1,000 Total IV fluid infused: 1,000 Progress Note Anesthesia document: Postop Eval 1 completed: Yes
--- NOTE | 2025-04-07 10:56 | EX.PCM.DISCH ---
Discharge Instructions Diet Discharge Diet: No restrictions Dressing / Incision Call your doctor if you observe: Shortness of breath and Chest pain Additional Dressing/Incision Instructions:: Strict elevation of operative extremity above heart for next 72 hours. Ice 15 minutes on 15 minutes off. Continue ice and elevation for 7 days postoperatively. Encourage finger range of motion. Absolutely no weightbearing through right upper extremity. no lifting pushing or pulling more than a a pencil or fork. Encourage full finger flexion and extension, and elbow flexion extension May remove sling only use for comfort. must keep splint on clean and dry. Follow-up in office in 2 week or sooner if any concern. Follow Up Care Please Follow Up With: Gustavo Bertrand DO When: 2 weeks Test Results: Test results from this visit will be discussed in further detail at your follow-up appointment, if applicable. Discharge Plan Admission Primary Reason for Your Visit: Right distal radius open reduction internal fixation Attending Provider: Gustavo Bertrand Primary Care Provider: Care Physician,Fern Primary Instructions Print Language: Liberian Discharge Orders/Prescriptions Prescriptions: New acetaminophen 500 mg tablet 1,000 mg PO Q6H Qty: 60 0RF cephalexin 500 mg capsule 1,000 mg PO Q8H Qty: 4 0RF Rx Instructions: Take 2 tabs before you go to bed and 2 tabs after 5 AM morning after surgery when you wake up oxycodone 5 mg tablet 5 - 10 mg PO Q4H PRN (Reason: pain) 7 Days Qty: 40 0RF Continued ferrous gluconate [Ferate] 240 mg (27 mg iron) tablet 240 mg PO DAILY ascorbic acid (vitamin C) 1,000 mg capsule 1 g PO DAILY ibuprofen 200 mg capsule 200 mg PO Q6H PRN (Reason: pain) omeprazole magnesium [Acid Manifold Builder (omeprazole)] 20 mg capsule,delayed release(DR/EC) 20 mg PO QHS TURMERIC CURCUMIN 500 mg PO DAILY Held hydrocodone-acetaminophen 5-325 mg tablet 1 tab PO BID PRN (Reason: pain) Hold Instructions: Do not take in combination with oxycodone or other narcotic Referrals / Follow Up: Care Physician,No Primary [Primary Care Provider] - Disposition Disposition (needs filled in before D/C Order can be placed): Home, Self Care
[2025-04-07] MEDS: Cefazolin 2 GM in 0.9% Normal Saline (100mL Bag) 100 ML IV (12:45)
--- NOTE | 2025-04-07 23:10 | POSTOPAN2_ITS ---
Anesthesia Postop Eval I Sum Postop Eval Completion status Anesthesia document: Postop Eval 1 completed: Yes Anesthesia Postop Eval I Summary Anesthesia Postop Eval I Summary: Anesthesia Postop Eval I: Assessment Summary Airway patent Yes 04/07/25 10:48 SHIP [email or web address] Spontaneous unlabored Yes 04/07/25 10:48 SHIP [email or web address].[email or web address] respirations Mental status Awake 04/07/25 10:48 SHIP [email or web address] nausea No 04/07/25 10:48 SHIP FASTENER.JCLI Vomiting No 04/07/25 10:48 SHIP FASTENER.TESSA Anesthesia Postop Eval I: Fluid Summary Crystalloid volume administer 1,000 04/07/25 10:48 SHIP FASTENER.JCLI (ml) Colloids volume administered ( ml) Blood Product volume administered (ml) Total IV fluid infused 1,000 04/07/25 10:48 SHIP FASTENER.TESSA Anesthesia Postop Eval I: Summary Notes Anesthesia Complication No 04/07/25 10:48 SHIP FASTENER.TESSA Anesthesia Complication Comment: Post-operative progress note Anesthesia: Postop Eval II Evaluation Mental status: Awake and Calm Pain Level: 4 nausea: No Vomiting: No Progress Note Post-operative progress note: After being in the PACU for quite a while, the patient is decided she did want the pain block and received an axillary brachial plexus block. Complications Anesthesia Complication: No
--- NOTE | 2025-04-07 23:10 | POSTOPAN2_ITS ---
Anesthesia Postop Eval I Sum Postop Eval Completion status Anesthesia document: Postop Eval 1 completed: Yes Anesthesia Postop Eval I Summary Anesthesia Postop Eval I Summary: Anesthesia Postop Eval I: Assessment Summary Airway patent Yes 04/07/25 10:48 GENETIC PHYSICIAN.MIRYAMLI Spontaneous unlabored Yes 04/07/25 10:48 GENETIC PHYSICIAN.TESSA respirations Mental status Awake 04/07/25 10:48 GENETIC PHYSICIAN.JCLI nausea No 04/07/25 10:48 GENETIC PHYSICIAN.JCLI Vomiting No 04/07/25 10:48 GENETIC PHYSICIAN.TESSA Anesthesia Postop Eval I: Fluid Summary Crystalloid volume administer 1,000 04/07/25 10:48 GENETIC PHYSICIAN.JCLI (ml) Colloids volume administered ( ml) Blood Product volume administered (ml) Total IV fluid infused 1,000 04/07/25 10:48 GENETIC PHYSICIAN.TESSA Anesthesia Postop Eval I: Summary Notes Anesthesia Complication No 04/07/25 10:48 GENETIC PHYSICIAN.TESSA Anesthesia Complication Comment: Post-operative progress note Anesthesia: Postop Eval II Evaluation Mental status: Awake and Calm Pain Level: 4 nausea: No Vomiting: No Progress Note Post-operative progress note: After being in the PACU for quite a while, the patient is decided she did want the pain block and received an axillary brachial plexus block. Complications Anesthesia Complication: No
--- NOTE | 2025-04-07 23:10 | PCM.POSTANE2 ---
Anesthesia Postop Eval I Sum Postop Eval Completion status Anesthesia document: Postop Eval 1 completed: Yes Anesthesia Postop Eval I Summary Anesthesia Postop Eval I Summary: Anesthesia Postop Eval I: Assessment Summary Airway patent Yes 04/07/25 10:48 PROFESSOR OF [email or web address].MIRYAMLI Spontaneous unlabored Yes 04/07/25 10:48 PROFESSOR OF ARCHAEOLOGY.TESSA respirations Mental status Awake 04/07/25 10:48 PROFESSOR OF ARCHAEOLOGY.JCLI nausea No 04/07/25 10:48 PROFESSOR OF ARCHAEOLOGY.JCLI Vomiting No 04/07/25 10:48 PROFESSOR OF ARCHAEOLOGY.TESSA Anesthesia Postop Eval I: Fluid Summary Crystalloid volume administer 1,000 04/07/25 10:48 PROFESSOR OF ARCHAEOLOGY.JCLI (ml) Colloids volume administered ( ml) Blood Product volume administered (ml) Total IV fluid infused 1,000 04/07/25 10:48 PROFESSOR OF ARCHAEOLOGY.TESSA Anesthesia Postop Eval I: Summary Notes Anesthesia Complication No 04/07/25 10:48 PROFESSOR OF ARCHAEOLOGY.TESSA Anesthesia Complication Comment: Post-operative progress note Anesthesia: Postop Eval II Evaluation Mental status: Awake and Calm Pain Level: 4 nausea: No Vomiting: No Progress Note Post-operative progress note: After being in the PACU for quite a while, the patient is decided she did want the pain block and received an axillary brachial plexus block. Complications Anesthesia Complication: No
--- NOTE | 2025-04-07 23:10 | PCM.POSTANE2 ---
Anesthesia Postop Eval I Sum Postop Eval Completion status Anesthesia document: Postop Eval 1 completed: Yes Anesthesia Postop Eval I Summary Anesthesia Postop Eval I Summary: Anesthesia Postop Eval I: Assessment Summary Airway patent Yes 04/07/25 10:48 BAKER [email or web address] Spontaneous unlabored Yes 04/07/25 10:48 BAKER BENCH.TESSA respirations Mental status Awake 04/07/25 10:48 BAKER BENCH.JCLI nausea No 04/07/25 10:48 BAKER BENCH.JCLI Vomiting No 04/07/25 10:48 BAKER BENCH.TESSA Anesthesia Postop Eval I: Fluid Summary Crystalloid volume administer 1,000 04/07/25 10:48 BAKER BENCH.JCLI (ml) Colloids volume administered ( ml) Blood Product volume administered (ml) Total IV fluid infused 1,000 04/07/25 10:48 BAKER BENCH.TESSA Anesthesia Postop Eval I: Summary Notes Anesthesia Complication No 04/07/25 10:48 BAKER BENCH.TESSA Anesthesia Complication Comment: Post-operative progress note Anesthesia: Postop Eval II Evaluation Mental status: Awake and Calm Pain Level: 4 nausea: No Vomiting: No Progress Note Post-operative progress note: After being in the PACU for quite a while, the patient is decided she did want the pain block and received an axillary brachial plexus block. Complications Anesthesia Complication: No
== END 2025-04-07 15:45 | disposition home or self-care (01) ==
LOC: SDC 07:30 → AC 07:32
PROVIDERS: Anesthesiology; Referring Provider Orthopaedic Surgery; Visit Provider Orthopaedic Surgery
PROC: (CPT 25607; principal; 2025-04-07 08:45)
DX: S52.551A Other extraarticular fracture of lower end of right radius, initial encounter for closed fracture (principal); S52.691A Other fracture of lower end of right ulna, initial encounter for closed fracture; W01.0XXA Fall on same level from slipping, tripping and stumbling without subsequent striking against object, initial encounter; Y99.0 Civilian activity done for income or pay; K21.9 Gastro-esophageal reflux disease without esophagitis; D64.9 Anemia, unspecified; Z79.899 Other long term (current) drug therapy
CPT/HCPCS: 25607; 01830; 64417; 73100; 76000; 85027; 85610; 85730; 93005; C1713; J2405

== ENCOUNTER 2025-06-10 16:30 | Outpatient (RCR) | payer OTHER, SELFPAY ==
--- NOTE | 2025-04-23 09:24 | HP.OTEVAL ---
Patient's Visit Information Visit Information Visit Information: HOSSEIN SCHULER is a 54 year old F, referred to Occupational Therapy by Dr. Gustavo Bertrand DO, with a diagnosis of R distal radius and ulna fracture s/p ORIF. Date of Evaluation: 04/23/25 Occupational Therapist: Sarah Gann Subjective Subjective: This 54 year old female arrives with dx of R distal radius fracture s/p surgical ORIF complete 04/07/[address] Bertrand pt now 2 weeks and 2 days out. Pt was walking down the [place] at work and fell. Pt id R hand dominant. 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 Objective Objective/Observation: pt arrives no brace on holding arm at side in protective manner. bruising on arm sterri strips in place ROM Wrist: R 20/ 35 L 65/65 MP: R 45 L 60 IP: R 35 L 55 Opposition: wfl ROM Comments: R MF 2.5 from palm R forearm supination 50 degrees L 60 degrees Strength Strength Comments: to test at later date Edema Wrist: R 18.5 cm L 18 cm Sensation Sensation Comments: denies -- will start to get tingly if arm at side for too long however goes away quickly Quick DASH-Disab of Arm,Shoulder& Hand Quick DASH Score: 70.4525 Goals Goal:100% adherence to protocol: Yes Goal:Daily scar massage when approriate: Yes Goal:ROM equal to unaffected hand: Yes Goal:Manufacturing Cost Estimator/Pinch strength at least 75% of unaffected hand: Yes Goal:No pain with affected hand use: Yes Goal:Full use of affected hand in daily activities including work: Yes Other Goal: pt will decrease swelling of R wrist equal to non affected UE in order to improve ROM and use pt will improve quick dash score by 15 points or more in order to improve overall use of R dominant hand during day to day tasks Rehabilitation General Assessment: This 54 year old female arrives with dx of R distal radius as well as ulna fracture s/p ORIF complete 04/07/25. Pt demonstrates decreased ROM of wrist as well as digits and forearm. Pt with swelling to hand and wrist as well as pain with movement. Anticipated decreased strength as result of immobilization and sx indicating need for OT services 1-2x a week for 4-6 weeks. Rehabilitation Potential: Good Anticipated Interventions Anticipated Interventions: A/AAROM/PROM, Strengthening, Edema Control, Scar Care, Joint Protection/Energy Conservation, Education re Diagnosis and Home Program Visit Plan Frequency: 1-2x /Week Duration: 4-6 Weeks General Plan: scar mobilization wrist, forearm and digit ROM blocking strengthening once able TEXT: Thank you for the opportunity to evaluate your patient. For Medicare and Medicare HMO plans, please review the plan of care and approve it. It will need to be FAXED BACK to us at [phone] for Medicare purposes. Please let me know if there are questions or concerns regarding this plan of care. Physician Signature: Date:
--- NOTE | 2025-06-10 17:05 | OTREVAL_ITS ---
Re-Evaluation Intro: Dr. Gustavo Bertrand, DO, It has been my pleasure to treat HOSSEIN SCHULER over the last 11 visits for R distal radius and ulna fracture s/p ORIF. Please see the progress note below for an update on the occupational therapy plan of care! Subjective Subjective: pt arrives 9weeks and 1 days s/p from ORIF of tight wrist. 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 Objective Objective/Function: right wrist UD 30* right wrist RD 15* wrist ROM 40/35 right stemhole borer and topper strength 30# left 55# right lateral pinch 2# left 6# ( both demo thumb instability) pt is limited with therapy visits and with pts progress pt agrees to cont. with a HEP to cont. to improve her strength and ROM. pt will call if she feels she needs further ex. added to her HEP in 3-4 weeks Plan Plan Frequency: 1-2x /Week Duration: 4-6 Weeks Visits in this POC: 4-6 weeks (1-2x week) Plan: AROM/AAROM/PROM blocking scar mobilization strength return to use with light tasks Goals Goals Patient Goals: Regain Strength, Decrease Pain, Decrease Swelling/Stiffness, Use Hand/Wrist/Arm Normally Again, Increase ROM, Be More Independent in ADLS, Resume Former Household Responsibilities (Cooking,Cleaning,Yard, etc.) and Resume Hobbies Goal:100% adherence to protocol: Yes Goal:Daily scar massage when approriate: Yes Goal:ROM equal to unaffected hand: Yes Goal:Security Agent/Pinch strength at least 75% of unaffected hand: Yes Goal:No pain with affected hand use: Yes Goal:Full use of affected hand in daily activities including work: Yes Other Goal: pt will decrease swelling of R wrist equal to non affected UE in order to improve ROM and use pt will improve quick dash score by 15 points or more in order to improve o verall use of R dominant hand during day to day tasks Anticipated Interventions Anticipated Interventions Anticipated Interventions: A/AAROM/PROM, Strengthening, Edema Control, Scar Care, Joint Protection/Energy Conservation, Education re Diagnosis and Home Program Re-Evaluation Ending Re-evaluation ending: Please do not hesitate to contact me at [phone] by phone or if you have questions or concerns regarding this new plan of care! Sincerely, Kylah Parrish, OTR/L, CHT
== END 2025-06-10 19:00 | disposition home or self-care (01) ==
LOC: OT 16:30
PROVIDERS: Referring Provider Orthopaedic Surgery; Visit Provider Orthopaedic Surgery
DX: S52.691D Other fracture of lower end of right ulna, subsequent encounter for closed fracture with routine healing (principal); S52.551D Other extraarticular fracture of lower end of right radius, subsequent encounter for closed fracture with routine healing
CPT/HCPCS: 97110; 97140; 97165; 97530